=== PATIENT | female | born 1970 | race Caucasian/White ===

== ENCOUNTER 2019-04-05 02:24 | Emergency (ER) | payer OTHER ==
[2019-04-05] MEDS: KETOROLAC 30 MG INJ IM (03:42)
== END 2019-04-05 04:05 | disposition home or self-care (01) ==
LOC: FTE 02:24
DX: K08.89 Other specified disorders of teeth and supporting structures (principal); J45.909 Unspecified asthma, uncomplicated
CPT/HCPCS: 81025; 96372; 99284-25